=== PATIENT | female | born 1965 ===

== ENCOUNTER 2021-04-30 13:57 | Inpatient (IN) | payer OTHER ==
[~2021-04-30] VITALS: Ht 172.7 cm; Wt 100.5 kg
--- NOTE | 2021-04-30 14:07 | PHYS DOC ---
General Adult EDM: Chief Complaint: CHEST PAIN HPI: HPI: Patient is a 55 year old female who presents with report of chest pain, which began at home within the last few hours. She was sitting down when symptoms began. She reports pain beginning in her left chest, then radiating to the right chest and then radiating to her mid upper back. She denies dyspnea. She denies cough, fever, hemoptysis. She denies abdominal pain. She does report some mild nausea, no vomiting. She does report a mild headache, which she reports is usual for her. No thunderclap headache. She denies syncope. She denies leg pain or swelling. Denies recent surgery, travel history, or hospitalization. She reports that several years ago she had similar chest pain, which she reports was attributed to hypothyroidism and anxiety. She does admit that she has been quite stressed out recently, as she has some family members living with her, and her has been upset about this dynamic. She has no known history of any heart disease or NM. She reports that her mother has some unknown heart condition, which was diagnosed in her mother's 50s. Review of Systems: Review of Systems: Constitutional: Denies fever or chills. [] HENT: Denies nasal congestion or sore throat. [] Respiratory: Denies cough or hemoptysis. Denies shortness of breath. Cardiovascular: Reports chest pain. Denies peripheral edema. GI: Reports mild nausea, no vomiting. Denies abdominal pain. Musculoskeletal: Reports back pain, radiating from her chest. Denies joint pain or swelling. Integument: Denies rash. [] Neurologic: Denies headache, focal weakness or sensory changes. [] Psychiatric: Admits to anxiety and stress as related to current home situation.. [] Heart Score: C/O Chest Pain: Yes HEART Score for Chest Pain: HEART Score for Chest Pain Response (Comments) Value History Moderately Suspicious 1 ECG Nonspecific Repolarizatio 1 Age >45 - < 65 1 Risk Factors 1 or 2 Risk Factors 1 Troponin >1-<3x Normal Limit 1 Total 5 Risk Factors: Risk Factors: DM, Current or recent (<one month) smoker, HTN, HLP, family history of CAD, obesity. Risk Scores: Score 0 - 3: 2.5% MACE over next 6 weeks - Discharge Home Score 4 - 6: 20.3% MACE over next 6 weeks - Admit for Clinical Observation Score 7 - 10: 72.7% MACE over next 6 weeks - Early Invasive Strategies Physical Exam: PE: Constitutional: Well developed, well nourished, no acute distress, non-toxic appearance. She is anxious and appears uncomfortable. Right HENT: Normocephalic, atraumatic, mucous membranes are moist. Eyes: Sclera are clear, anicteric Neck: Trachea midline, no JVD Cardiovascular:Heart rate regular rhythm, no murmur, +2 radial and +2 posterior tibial pulses bilaterally. Lungs & Thorax: Bilateral breath sounds clear to auscultation, equal chest rise, no tachypnea, no retractions, no rales, rhonchi or wheezes. Palpation of the entire chest wall reproduces some pain. No palpable crepitus or step-offs. Abdomen: Abdomen is soft, nondistended, nontender to palpation. Skin: Warm, dry, no erythema, no rash. [] Back: No deformity. Diffuse paraspinal soft tissue thoracic tenderness to palpation. No midline tenderness or step-offs. Extremities: No tenderness, no cyanosis, no clubbing, ROM intact, no edema. No calf tenderness. Neurologic: Alert and oriented X 3, normal motor function, normal sensory function, no focal deficits noted. [] Psychologic: She is tearful and anxious, she is pleasant and cooperative. [] EKG: EKG: EKG is interpreted at 1410 Rhythm is sinus Rate is 75 bpm [place] is normal Marked artifact No STEMI EKG is interpreted at 1505 Rhythm is sinus Rate is 77 bpm [place] is normal No STEMI Artifact is improved Radiology/Procedures: Radiology/Procedures: IMAGING REPORT Signed PATIENT: REZA GRIMMCOUNT: [id number] : 1965 LOCATION: ER AGE: 55 SEX: F EXAM STATUS: REG ER ORD. PHYSICIAN: GIOVANI BARDALES DO REASON: chest pain PROCEDURE: PORTABLE CHEST 1V INDICATION: Reason: chest pain / Spl. Instructions: / History: COMPARISON: None. FINDINGS: Single view of chest obtained. Cardiomediastinal silhouette is prominent in size. Opacity is seen at the left greater than right lung base. IMPRESSION: * Opacity at left greater than right lung base which could be from atelectasis or infiltrate. A portion of this is likely also secondary to overlap of soft tissue structures. * Enlarged cardiomediastinal Silhouette which can be seen with cardiomegaly and/or pericardial effusion. Electronically signed by: Yu Rvias MD (04/30/2021 4:04 PM) [id number] DICTATED and SIGNED BY: YU RIVAS MD DATE: 04/30/21 [id number] IMAGING REPORT Signed PATIENT: REZA GRIMMCOUNT: [id number] : 1965 LOCATION: ER AGE: 55 SEX: F EXAM STATUS: REG ER ORD. PHYSICIAN: GIOVANI BARDALES DO REASON: chest pain, back pain, PROCEDURE: CT ANGIOGRAPHY CHEST Study: CT angiography of the chest with and without contrast Indication: Chest and back pain. Comparison: None. Technique: Helical CT imaging performed of the chest after the intravenous administration of 100 cc Omnipaque 350. Sagittal and coronal 3D MIP reconstructions were obtained. One or more of the following individualized dose reduction techniques were utilized for this examination: 1. Automated exposure control 2. Adjustment of the mA and/or kV according to patient size 3. Use of iterative reconstruction technique. Findings: Vasculature: No aortic aneurysm or dissection. The visualized aortic branch vessels at the upper abdomen and neck are patent. Main pulmonary artery caliber is within normal limits. No main or lobar pulmonary embolism. The peripheral pulmonary arteries are not fully evaluated on account of bolus timing. Non-vascular Findings: No pericardial effusion or mediastinal/hilar lymphadenopathy. Within normal limits esophagus. Mild emphysema. No significant pulmonary nodule that would warrant short-term follow-up. Mild bibasilar volume loss. No localized consolidation. Patent central airways. Unremarkable lower neck and axilla. Small nodular focus at the medial left breast, image 60 series 3 measuring 0.8 cm. Small hypoattenuating focus partially exophytic off the medial aspect of the left kidney upper pole which is too small to characterize. Splenic granulomas. Normal adrenal gland morphology. Several cystic density foci scattered throughout the liver which are statistically most likely benign. No acute or aggressive osseous abnormality. Impression: 1. No aortic aneurysm or dissection. The adequately assessed pulmonary arteries are patent. 2. Mild emphysema. No pneumothorax, pleural effusion or localized infiltrate. If the patient meets screening guidelines consider annual low dose CT of the chest. 3. Small nodular focus at the medial aspect the left breast measuring 0.8 cm. If not recently performed mammography is recommended. 4. Additional incidental/chronic findings outlined in the body of the report to include several hepatic cysts. Electronically signed by: FLASH ARRIAGA MD (04/30/2021 6:11 PM) [facility] DICTATED and SIGNED BY: FLASH ARRIAGA MD DATE: 04/30/21 [id number] 0 Course & Med Decision Making: Course & Med Decision Making Pertinent Labs and Imaging studies reviewed. (See chart for details) Patient is given p.o. aspirin, sublingual nitroglycerin. She is given IV Toradol and morphine. She was quite anxious initially, so she is given a dose of Ativan. She is resting very comfortably after all of this. She is reporting no further chest pain. Initial troponin is mildly elevated. CT angiogram took quite a while to be formally read by radiology, but ultimately turned is no evidence of dissection or other acute process. I have discussed all of the findings, differential diagnosis and plan of care with the patient. I explained my recommendation for admission and cardiology consultation. Second troponin returned markedly more elevated. I did order IV heparin drip. I consulted with Dr. Potts of cardiology, who agrees with medical management, and he will see the patient in the morning and will discuss cardiac catheterization. We'll continue to trend troponin exams as well. The patient is comfortable with the plan for admission. She is accepted for admission by Dr. Sotelo. Grayson Disclaimer: Grayson Disclaimer: This electronic medical record was generated, in whole or in part, using a voice recognition dictation system. Departure Departure Impression: Primary Impression: Chest pain Additional Impressions: Elevated troponin Cardiomegaly Acute coronary syndrome Disposition: ADMITTED INPATIENT Admitting Physician: NICOL Condition: GUARDED CATIA,GIOVANI Rosa DO Apr 30, 2021 14:07
[2021-04-30 14:28] LABS: BASO # 0.1 x10^3/uL (0.0-0.2); BASO % 1 % (0-3); EOS % 0 % (0-3); HEMATOCRIT 40.9 % (36.0-47.0); HEMOGLOBIN 13.5 g/dL (12.0-15.5); LYMPH # 1.7 x10^3/uL (1.0-4.8); LYMPH % 23 % (24-48); MEAN CORPUSCULAR HEMOGLOBIN 29 pg (25-35); MEAN CORPUSCULAR HGB CONC 33 g/dL (31-37); MEAN CORPUSCULAR VOLUME 87 fL (79-100); MONO # 0.5 x10^3/uL (0.0-1.1); MONO % 7 % (0-9); NEUT % 69 % (31-73); PLATELET COUNT 239 x10^3/uL (140-400); RED BLOOD COUNT 4.68 x10^6/uL (3.50-5.40); RED CELL DISTRIBUTION WIDTH 15.1 % (11.5-14.5); WHITE BLOOD COUNT 7.2 x10^3/uL (4.0-11.0)
[2021-04-30] MEDS ORDERED: KETOROLAC 15 MG/ML VIAL. IVP ONE (14:30)
[2021-04-30] MEDS ORDERED: IV NORMAL SALINE 1000ML BAG 1,000 ML IV ONE ×2 (14:30→18:15)
--- NOTE | 2021-04-30 14:37 | EKG ---
[facility] [address] [place] [address] Test Date: 2021-04-30 Test Time: 14:08:18 Pat Name: REZA GRIMM Department: Room: Gender: F Otc Clerk: : 1965 Requested By: GIOVANI BARDALES Order Number: [id number] Reading MD: José Miguel Davis MD Measurements Intervals [place] Rate: 0 P: MD: QRS: 0 QRSD: 0 T: 0 QT: 0 QTc: 0 Interpretive Statements SINUS RHYTHM BASELINE ARTIFACT NON-SPECIFIC ST/T CHANGES Electronically Signed On 05-02-2021 13:59:05 [employer]USSI[employer]ANGU[employer] PROFESSOR by José Miguel Davis MD
[2021-04-30 14:39] LABS: CALCIUM 8.3 mg/dL (8.5-10.1); CREATININE 0.7 mg/dL (0.6-1.0); GFR 87.2; POTASSIUM 3.8 mmol/L (3.5-5.1)
[2021-04-30 14:46] LABS: ALBUMIN 3.5 g/dL (3.4-5.0); ALBUMIN/GLOBULIN RATIO 0.9 (1.0-1.7); TOTAL BILIRUBIN 0.3 mg/dL (0.2-1.0); TOTAL PROTEIN 7.2 g/dL (6.4-8.2)
[2021-04-30] MEDS ORDERED: ASPIRIN CHEWABLE 81 MG TABLET. PO ONE (15:15)
[2021-04-30 15:18] LABS: PREG TEST PT QUAL NEGATIVE (NEG)
--- NOTE | 2021-04-30 15:19 | EKG ---
[facility] [address] [place] [address] Test Date: 2021-04-30 Test Time: 15:03:09 Pat Name: REZA GRIMM Department: Room: Gender: F Patient Monitor: : 1965 Requested By: GIOVANI BARDALES Order Number: [id number] Reading MD: José Miguel Davis MD Measurements Intervals [place] Rate: 77 P: 48 PA: 184 QRS: 0 QRSD: 94 T: 8 QT: 400 QTc: 455 Interpretive Statements SINUS RHYTHM Electronically Signed On 05-02-2021 13:58:18 SECOND SHIFT SUPERVISOR by José Miguel Davis MD
[2021-04-30] MEDS ORDERED: IOHEXOL 350 MG/ML 100 ML VIAL. IV ONE (15:30)
[2021-04-30] MEDS: NITROGLYCERIN SUBLINGUAL 0.4 MG BOTTLE OF 25. SL PRN ×2 (15:35→15:40)
[2021-04-30 15:49] LABS: BILIRUBIN,URINE NEGATIVE (NEG); CLARITY,URINE CLEAR; COLOR,URINE YELLOW; NITRITE,URINE NEGATIVE (NEG); PROTEIN,URINE NEGATIVE (NEG-TRACE); UROBILINOGEN,URINE 0.2 mg/dL (0.2 mg/dL)
[2021-04-30 15:53] LABS: BACTERIA,URINE 0 /HPF (0-FEW); RBC,URINE TNTC /HPF (0-2)
--- NOTE | 2021-04-30 16:07 | RAD ---
INDICATION: Reason: chest pain / Spl. Instructions: / History: COMPARISON: None. FINDINGS: Single view of chest obtained. Cardiomediastinal silhouette is prominent in size. Opacity is seen at the left greater than right lung base. IMPRESSION: * Opacity at left greater than right lung base which could be from atelectasis or infiltrate. A port ion of this is likely also secondary to overlap of soft tissue structures. * Enlarged cardiomediastinal Silhouette which can be seen with cardiomegaly and/or pericardial effus ion. Electronically signed by: Adrian Paris MD (04/30/2021 4:04 PM) [id number]
--- NOTE | 2021-04-30 18:13 | RAD ---
Study: CT angiography of the chest with and without contrast Indication: Chest and back pain. Comparison: None. Technique: Helical CT imaging performed of the chest after the intravenous administration of 100 cc O mnipaque 350. Sagittal and coronal 3D MIP reconstructions were obtained. One or more of the following individualized dose reduction techniques were utilized for this examinat ion: 1. Automated exposure control 2. Adjustment of the mA and/or kV according to patient size 3. Use of iterative reconstruction technique. Findings: Vasculature: No aortic aneurysm or dissection. The visualized aortic branch vessels at the upper abdomen and neck are patent. Main pulmonary artery caliber is within normal limits. No main or lobar pulmonary embolis m. The peripheral pulmonary arteries are not fully evaluated on account of bolus timing. Non-vascular Findings: No pericardial effusion or mediastinal/hilar lymphadenopathy. Within normal limits esophagus. Mild emphysema. No significant pulmonary nodule that would warrant short-term follow-up. Mild bibasil ar volume loss. No localized consolidation. Patent central airways. Unremarkable lower neck and axilla. Small nodular focus at the medial left breast, image 60 series 3 measuring 0.8 cm. Small hypoattenuating focus partially exophytic off the medial aspect of the left kidney upper pole w hich is too small to characterize. Splenic granulomas. Normal adrenal gland morphology. Several cysti c density foci scattered throughout the liver which are statistically most likely benign. No acute or aggressive osseous abnormality. Impression: 1. No aortic aneurysm or dissection. The adequately assessed pulmonary arteries are patent. 2. Mild emphysema. No pneumothorax, pleural effusion or localized infiltrate. If the patient meets s creening guidelines consider annual low dose CT of the chest. 3. Small nodular focus at the medial aspect the left breast measuring 0.8 cm. If not recently perfor med mammography is recommended. 4. Additional incidental/chronic findings outlined in the body of the report to include several hepa tic cysts. Electronically signed by: FLASH ARRIAGA MD (04/30/2021 6:11 PM) [facility]
[2021-04-30] MEDS ORDERED: MORPHINE SULFATE 4 MG/ML INJ. IVP PRN (18:15)
[2021-04-30] MEDS ORDERED: ONDANSETRON PF 4 MG/2 ML VIAL. IVP PRN (18:15)
[2021-04-30] MEDS ORDERED: MORPHINE SULFATE 4 MG/ML INJ. IVP ONE (18:45)
[2021-04-30] MEDS ORDERED: HEPARIN for IV BOLUS 10,000 UNIT/10 ML VIAL. IV PRN (19:00)
[2021-04-30 20:07] VITALS: BP 153/83
[2021-04-30] MEDS: HEPARIN 25,000UTS/250ML PREMIX 250 ML IV PRN (20:21)
[2021-04-30] MEDS ORDERED: METOPROLOL TART IMMED RELEASE 25 MG TABLET. PO ONE (21:15)
[2021-04-30] MEDS ORDERED: LEVO125T5 PO (21:18)
[2021-04-30] MEDS ORDERED: NORG1TAB6 PO (21:18)
--- NOTE | 2021-04-30 21:40 | PDOC1 ---
History and Physical Date of Admission Date of Admission DATE: 04/30/21 TIME: 21:34 Identification/Chief Complaint Chief Complaint chest pain Source Source: Chart review, Patient History of Present Illness History of Present Illness Ms. Polo, is a 55 year old female admit with chest pain. mid sternal pain in AM, then to right chest and back to back and back of neck to base of skull. Pain is now imrpvoed since being seen in the ER. CTA done in ER to r/o dissection, intial trop 75, now 6k no prior hx, stable on meds, she follows with her PCP well, she has had trouble trying to exercise for years "I felt like my heart was going to beat out of my chest" when trying to ride a bicycle. She reports that her grandmother and mother has some unknown heart condition, her PCP is Dr. Mathur Past Medical History Past Medical History graves, migrane, hypothyroid, overweight Past Surgical History Past Surgical History: No pertinent history Family History Family History: Coronary Artery Disease, Heart Disease, Other (COPD) Social History Smoke: Quit (4 years ago) ALCOHOL: none Drugs: None Current Problem List Problem List Problems Medical Problems: (1) Acute coronary syndrome Status: Acute (2) Cardiomegaly Status: Acute (3) Chest pain Status: Acute (4) Elevated troponin Status: Acute Current Medications Current Medications Current Medications Ketorolac Tromethamine (Toradol 15mg Vial) 15 mg 1X ONCE IVP Last administered on 04/30/21at 14:30; Start 04/30/21 at 14:30; Stop 04/30/21 at 14:31; Status DC Lorazepam (Ativan Inj) 1 mg 1X ONCE IVP Last administered on 04/30/21at 14:30; Start 04/30/21 at 14:30; Stop 04/30/21 at 14:31; Status DC Sodium Chloride 1,000 ml @ 1,000 mls/hr 1X ONCE IV Last administered on 04/30/21at 14:30; Start 04/30/21 at 14:30; Stop 04/30/21 at 15:29; Status DC Aspirin (Aspirin Chewable) 324 mg 1X ONCE PO Last administered on 04/30/21at 15:15; Start 04/30/21 at 15:15; Stop 04/30/21 at 15:16; Status DC Nitroglycerin (Nitrostat) 0.4 mg PRN Q5MIN PRN SL CHEST PAIN Last administered on 04/30/21at 15:40; Start 04/30/21 at 15:30 Iohexol (Omnipaque 350 Mg/ml) 100 ml 1X ONCE IV Last administered on 04/30/21at 15:30; Start 04/30/21 at 15:30; Stop 04/30/21 at 15:31; Status DC Ondansetron HCl (Zofran) 4 mg PRN Q8HRS PRN IVP NAUSEA/VOMITING; Start 04/30/21 at 18:15; Stop 05/01/21 at 18:14 Morphine Sulfate (Morphine Sulfate) 4 mg PRN Q4HRS PRN IVP chest pain; Start 04/30/21 at 18:15 Sodium Chloride 1,000 ml @ 75 mls/hr 1X ONCE IV Last administered on 04/30/21at 18:15; Start 04/30/21 at 18:15; Stop 05/01/21 at 07:34 Morphine Sulfate (Morphine Sulfate) 4 mg 1X ONCE IVP Last administered on 04/30/21at 18:24; Start 04/30/21 at 18:45; Stop 04/30/21 at 18:46; Status DC Heparin Sodium/ Dextrose 250 ml @ 12 mls/hr CONT PRN IV PER PROTOCOL Last administered on 04/30/21at 20:21; Start 04/30/21 at 19:00 Heparin Sodium (Porcine) (Heparin Sodium) 2,500 unit PRN Q6HRS PRN IV FOR UFH LEVEL LESS THAN 0.2; Start 04/30/21 at 19:00 Metoprolol Tartrate (Lopressor) 25 mg BID PO ; Start 05/01/21 at 09:00 Metoprolol Tartrate (Lopressor) 25 mg 1X ONCE PO ; Start 04/30/21 at 21:15; Stop 04/30/21 at 21:18; Status DC Active Scripts Active Reported Sprintec (Norgestimate-Ethinyl Estradiol) 1 Each Tablet 1 Tab PO DAILY Levothyroxine Sodium 125 Mcg Tablet 250 Mcg PO DAILYAC Allergies Allergies: Coded Allergies: No Known Drug Allergies (Unverified , 04/30/21) ROS Review of System exercise intolerance, can do 2 flights stairs only General: No: Chills, Night Sweats, Fatigue, Malaise, Appetite, Other PSYCHOLOGICAL ROS: No: Anxiety, Behavioral Disorder, Concentration difficultie, Decreased libido, Depression, Disorientation, Hallucinations, Hostility, Irritablity, Memory difficulties, Mood Swings, Obsessive thoughts, Physical abuse, Sexual abuse, Sleep disturbances, Suicidal ideation, Other Eyes: No Blurry vision, No Decreased vision, No Double vision, No Dry eyes, No Excessive tearing, No Eye Pain, No Itchy Eyes, No Loss of vision, No Photophobia, No Scotomata, No Uses contacts, No Uses glasses, No Other HEENT: No: Heacaches, Visual Changes, Hearing change, Nasal congestion, Nasal discharge, Oral lesions, Sinus pain, Sore Throat, Epistaxis, Sneezing, Snoring, Tinnitus, Vertigo, Vocal changes, Other Respiratory: YES: SOB with excertion; No: Cough, Hemoptysis, Orthopnea, Pleuritic Pain, Shortness of breath, Sputum Changes, Stridor, Tachypnea, Wheezing, Other Cardiovascular: yes Chest Pain; No Palpitations, No Orthopnea, No Paroxysmal Noc. Dyspnea, No Edema, No Lt Headedness, No Other Gastrointestinal: No Nausea, No Vomiting, No Abdominal Pain, No Diarrhea, No Constipation, No Melena, No Hematochezia, No Other Genitourinary: No Dysuria, No Frequency, No Incontinence, No Hematuria, No Retention, No Discharge, No Urgency, No Pain, No Flank Pain, No Other, No , No , No , No , No , No , No Musculoskeletal: Yes Joint Stiffness; No Gait Disturbance, No Joint Pain, No Joint Swelling, No Muscle Pain, No Muscular Weakness, No Pain In:, No Swelling In:, No Other Neurological: Yes Headaches; No Behavorial Changes, No Bowel/Bladder ControlChng, No Confusion, No Dizziness, No Gait Disturbance, No Impaired Coord/balance, No Memory Loss, No Numbness/Tingling, No Seizures, No Speech Problems, No Tremors, No Visual Changes, No Weakness, No Other Skin: No Dry Skin, No Eczema, No Hair Changes, No Lumps, No Mole Changes, No Mottling, No Nail Changes, No Pruritus, No Rash, No Skin Lesion Changes, No Other, No Acne Physical Exam General: Alert, Oriented X3, Cooperative, No acute distress HEENT: Atraumatic, PERRLA, EOMI Lungs: Clear to auscultation, Normal air movement Heart: S1S2, RRR, no gallops, no murmurs Abdomen: Normal bowel sounds, Soft Rectal Exam: not examined Extremities: No clubbing, No edema, Normal pulses Skin: No breakdown, No significant lesion Neuro: Normal speech, Sensation intact, Cranial nerves 3-12 NL Psych/Mental Status: Mental status NL, Mood NL Vitals Vitals Vital Signs Date Time Temp Pulse Resp B/P (MAP) Pulse Ox O2 Delivery O2 Flow Rate FiO2 04/30/21 20:07 97.6 79 18 153/83 (106) 98 Room Air 97.6 Labs Labs Laboratory Tests Test 04/30/21 14:10 04/30/21 15:36 04/30/21 17:15 White Blood Count 7.2 x10^3/uL (4.0-11.0) Red Blood Count 4.68 x10^6/uL (3.50-5.40) Hemoglobin 13.5 g/dL (12.0-15.5) Hematocrit 40.9 % (36.0-47.0) Mean Corpuscular Volume 87 fL (79-100) Mean Corpuscular Hemoglobin 29 pg (25-35) Mean Corpuscular Hemoglobin Concent 33 g/dL (31-37) Red Cell Distribution Width 15.1 % (11.5-14.5) Platelet Count 239 x10^3/uL (140-400) Neutrophils (%) (Auto) 69 % (31-73) Lymphocytes (%) (Auto) 23 % (24-48) Monocytes (%) (Auto) 7 % (0-9) Eosinophils (%) (Auto) 0 % (0-3) Basophils (%) (Auto) 1 % (0-3) Neutrophils # (Auto) 5.0 x10^3/uL (1.8-7.7) Lymphocytes # (Auto) 1.7 x10^3/uL (1.0-4.8) Monocytes # (Auto) 0.5 x10^3/uL (0.0-1.1) Eosinophils # (Auto) 0.0 x10^3/uL (0.0-0.7) Basophils # (Auto) 0.1 x10^3/uL (0.0-0.2) D-Dimer (Jesi) 0.31 ug/mlFEU (0.00-0.50) Sodium Level 140 mmol/L (136-145) Potassium Level 3.8 mmol/L (3.5-5.1) Chloride Level 107 mmol/L (98-107) Carbon Dioxide Level 21 mmol/L (21-32) Anion Gap 12 (6-14) Blood Urea Nitrogen 10 mg/dL (7-20) Creatinine 0.7 mg/dL (0.6-1.0) Estimated GFR (Cockcroft-Gault) 87.2 BUN/Creatinine Ratio 14 (6-20) Glucose Level 111 mg/dL (70-99) Calcium Level 8.3 mg/dL (8.5-10.1) Magnesium Level 2.0 mg/dL (1.8-2.4) Total Bilirubin 0.3 mg/dL (0.2-1.0) Aspartate Amino Transf (AST/SGOT) 12 U/L (15-37) Alanine Aminotransferase (ALT/SGPT) 19 U/L (14-59) Alkaline Phosphatase 71 U/L (46-116) Creatine Kinase 81 U/L (26-192) Troponin I High Sensitivity 74 ng/L (4-50) 5436 ng/L (4-50) JH-Aol-S-Type Natriuretic Peptide 253 pg/mL (0-124) Total Protein 7.2 g/dL (6.4-8.2) Albumin 3.5 g/dL (3.4-5.0) Albumin/Globulin Ratio 0.9 (1.0-1.7) Lipase 48 U/L (73-393) Serum Test, Qualitative Negative (NEG) Urine Collection Type Unknown Urine Color Yellow Urine Clarity Clear Urine pH 6.0 (<5.0-8.0) Urine Specific [place] 1.010 (1.000-1.030) Urine Protein Negative mg/dL (NEG-TRACE) Urine Glucose (UA) Negative mg/dL (NEG) Urine Ketones (Stick) 40 mg/dL (NEG) Urine Blood Large (NEG) Urine Nitrite Negative (NEG) Urine Bilirubin Negative (NEG) Urine Urobilinogen Dipstick 0.2 mg/dL (0.2 mg/dL) Urine Leukocyte Esterase Small (NEG) Urine RBC Tntc /HPF (0-2) Urine WBC 1-4 /HPF (0-4) Urine Squamous Epithelial Cells Few /LPF Urine Bacteria 0 /HPF (0-FEW) Urine Mucus Slight /LPF Laboratory Tests Test 04/30/21 14:10 04/30/21 15:36 04/30/21 17:15 White Blood Count 7.2 x10^3/uL (4.0-11.0) Red Blood Count 4.68 x10^6/uL (3.50-5.40) Hemoglobin 13.5 g/dL (12.0-15.5) Hematocrit 40.9 % (36.0-47.0) Mean Corpuscular Volume 87 fL (79-100) Mean Corpuscular Hemoglobin 29 pg (25-35) Mean Corpuscular Hemoglobin Concent 33 g/dL (31-37) Red Cell Distribution Width 15.1 % (11.5-14.5) Platelet Count 239 x10^3/uL (140-400) Neutrophils (%) (Auto) 69 % (31-73) Lymphocytes (%) (Auto) 23 % (24-48) Monocytes (%) (Auto) 7 % (0-9) Eosinophils (%) (Auto) 0 % (0-3) Basophils (%) (Auto) 1 % (0-3) Neutrophils # (Auto) 5.0 x10^3/uL (1.8-7.7) Lymphocytes # (Auto) 1.7 x10^3/uL (1.0-4.8) Monocytes # (Auto) 0.5 x10^3/uL (0.0-1.1) Eosinophils # (Auto) 0.0 x10^3/uL (0.0-0.7) Basophils # (Auto) 0.1 x10^3/uL (0.0-0.2) D-Dimer (Jesi) 0.31 ug/mlFEU (0.00-0.50) Sodium Level 140 mmol/L (136-145) Potassium Level 3.8 mmol/L (3.5-5.1) Chloride Level 107 mmol/L (98-107) Carbon Dioxide Level 21 mmol/L (21-32) Anion Gap 12 (6-14) Blood Urea Nitrogen 10 mg/dL (7-20) Creatinine 0.7 mg/dL (0.6-1.0) Estimated GFR (Cockcroft-Gault) 87.2 BUN/Creatinine Ratio 14 (6-20) Glucose Level 111 mg/dL (70-99) Calcium Level 8.3 mg/dL (8.5-10.1) Magnesium Level 2.0 mg/dL (1.8-2.4) Total Bilirubin 0.3 mg/dL (0.2-1.0) Aspartate Amino Transf (AST/SGOT) 12 U/L (15-37) Alanine Aminotransferase (ALT/SGPT) 19 U/L (14-59) Alkaline Phosphatase 71 U/L (46-116) Creatine Kinase 81 U/L (26-192) Troponin I High Sensitivity 74 ng/L (4-50) 5436 ng/L (4-50) ZI-Asc-D-Type Natriuretic Peptide 253 pg/mL (0-124) Total Protein 7.2 g/dL (6.4-8.2) Albumin 3.5 g/dL (3.4-5.0) Albumin/Globulin Ratio 0.9 (1.0-1.7) Lipase 48 U/L (73-393) Serum Test, Qualitative Negative (NEG) Urine Collection Type Unknown Urine Color Yellow Urine Clarity Clear Urine pH 6.0 (<5.0-8.0) Urine Specific [place] 1.010 (1.000-1.030) Urine Protein Negative mg/dL (NEG-TRACE) Urine Glucose (UA) Negative mg/dL (NEG) Urine Ketones (Stick) 40 mg/dL (NEG) Urine Blood Large (NEG) Urine Nitrite Negative (NEG) Urine Bilirubin Negative (NEG) Urine Urobilinogen Dipstick 0.2 mg/dL (0.2 mg/dL) Urine Leukocyte Esterase Small (NEG) Urine RBC Tntc /HPF (0-2) Urine WBC 1-4 /HPF (0-4) Urine Squamous Epithelial Cells Few /LPF Urine Bacteria 0 /HPF (0-FEW) Urine Mucus Slight /LPF VTE Prophylaxis Ordered VTE Prophylaxis Devices: No VTE Pharmacological Prophylaxi: Yes Assessment/Plan Assessment/Plan NSTEMI admit, heparin gtt, statin, b-dominguez, aspirin, CV consult obese, BMI 33 htn graves disease, hypothyriod recent vaginal bleeding without anemia, on control, will need f/u migrane headache, better on hormone replacement Justifications for Admission Other Justification ROMEO WEBSTER MD Apr 30, 2021 21:40
[2021-04-30] MEDS: ATORVASTATIN CALCIUM 40 MG TABLET. PO SCH (22:47)
[2021-04-30 22:50] VITALS: BP 117/64
[2021-05-01 02:42] VITALS: BP 103/54
[2021-05-01 02:48] LABS: HEMATOCRIT 35.9 % (36.0-47.0); HEMOGLOBIN 11.8 g/dL (12.0-15.5); RED BLOOD COUNT 4.11 x10^6/uL (3.50-5.40); RED CELL DISTRIBUTION WIDTH 15.3 % (11.5-14.5); WHITE BLOOD COUNT 6.1 x10^3/uL (4.0-11.0)
[2021-05-01 03:04] LABS: CALCIUM 7.6 mg/dL (8.5-10.1); CREATININE 0.6 mg/dL (0.6-1.0); GFR 104.2; POTASSIUM 3.9 mmol/L (3.5-5.1)
--- NOTE | 2021-05-01 06:38 | EKG ---
[facility] [address] [place] [address] Test Date: 2021-05-01 Test Time: 02:20:18 Pat Name: REZA GRIMM Department: Room: 2 Gender: F Med Care Manager: [facility] : 1965 Requested By: ROMEO WEBSTER Order Number: [id number] Reading MD: José Miguel Davis MD Measurements Intervals Nunez Rate: 54 P: 51 WV: 172 QRS: 48 QRSD: 92 T: 20 QT: 456 QTc: 434 Interpretive Statements SINUS RHYTHM Electronically Signed On 05-03-2021 11:43:07 [employer] by José Miguel Davsi MD
[2021-05-01 07:00] VITALS: BP 135/68
[2021-05-01] MEDS: ACETAMINOPHEN 325 MG TABLET. PO PRN ×2 (07:30→18:40)
[2021-05-01] MEDS: METOPROLOL TART IMMED RELEASE 25 MG TABLET. PO SCH ×2 (09:12→21:15)
[2021-05-01 11:00] VITALS: BP 135/77
[2021-05-01] MEDS ORDERED: SODIUM BICARBONATE VIAL 50 MEQ in IV 1/2 NORMAL SALINE 1,000 ML IV ONE (11:00)
--- NOTE | 2021-05-01 12:15 | PDOC ---
[employer] PROGRESS NOTE Date of Service DOS: DATE: 05/01/21 TIME: 12:13 Chief Complaint Chief Complaint NSTEMI admit, heparin gtt, statin, b-dominguez, aspirin, CV consult obese, BMI 33 htn graves disease, hypothyriod recent vaginal bleeding without anemia, on control, will need f/u migrane headache, better on hormone replacement History of Present Illness History of Present Illness contrast given for CTA yesterday, will give IV bicarb fluid today to protect kidney needs cardiac cath, plan in AM, good renal fxn, plan to keep it that way discussed with Dr. Gamboa Vitals/I&O Vitals/I&O: Vital Signs Date Time Temp Pulse Resp B/P (MAP) Pulse Ox O2 Delivery O2 Flow Rate FiO2 05/01/21 09:54 Room Air 05/01/21 09:12 64 135/68 05/01/21 07:00 97.2 18 97 97.2 I & O 04/30/21 04/30/21 05/01/21 15:00 23:00 07:00 Intake Total 400 ml 200 ml Output Total 1 ml Balance 400 ml 199 ml Physical Exam General: Alert, Oriented X3, Cooperative, No acute distress Heart: Regular rate, No murmurs Abdomen: Normal bowel sounds, Soft Extremities: No clubbing, No edema, Normal pulses Skin: No breakdown, No significant lesion Labs Labs: Laboratory Tests Test 04/30/21 14:10 04/30/21 15:36 04/30/21 17:15 05/01/21 02:32 White Blood Count 7.2 x10^3/uL (4.0-11.0) 6.1 x10^3/uL (4.0-11.0) Red Blood Count 4.68 x10^6/uL (3.50-5.40) 4.11 x10^6/uL (3.50-5.40) Hemoglobin 13.5 g/dL (12.0-15.5) 11.8 g/dL (12.0-15.5) Hematocrit 40.9 % (36.0-47.0) 35.9 % (36.0-47.0) Mean Corpuscular Volume 87 fL (79-100) 87 fL (79-100) Mean Corpuscular Hemoglobin 29 pg (25-35) 29 pg (25-35) Mean Corpuscular Hemoglobin Concent 33 g/dL (31-37) 33 g/dL (31-37) Red Cell Distribution Width 15.1 % (11.5-14.5) 15.3 % (11.5-14.5) Platelet Count 239 x10^3/uL (140-400) 224 x10^3/uL (140-400) Neutrophils (%) (Auto) 69 % (31-73) Lymphocytes (%) (Auto) 23 % (24-48) Monocytes (%) (Auto) 7 % (0-9) Eosinophils (%) (Auto) 0 % (0-3) Basophils (%) (Auto) 1 % (0-3) Neutrophils # (Auto) 5.0 x10^3/uL (1.8-7.7) Lymphocytes # (Auto) 1.7 x10^3/uL (1.0-4.8) Monocytes # (Auto) 0.5 x10^3/uL (0.0-1.1) Eosinophils # (Auto) 0.0 x10^3/uL (0.0-0.7) Basophils # (Auto) 0.1 x10^3/uL (0.0-0.2) D-Dimer (Jesi) 0.31 ug/mlFEU (0.00-0.50) Sodium Level 140 mmol/L (136-145) 138 mmol/L (136-145) Potassium Level 3.8 mmol/L (3.5-5.1) 3.9 mmol/L (3.5-5.1) Chloride Level 107 mmol/L (98-107) 109 mmol/L (98-107) Carbon Dioxide Level 21 mmol/L (21-32) 23 mmol/L (21-32) Anion Gap 12 (6-14) 6 (6-14) Blood Urea Nitrogen 10 mg/dL (7-20) 10 mg/dL (7-20) Creatinine 0.7 mg/dL (0.6-1.0) 0.6 mg/dL (0.6-1.0) Estimated GFR (Cockcroft-Gault) 87.2 104.2 BUN/Creatinine Ratio 14 (6-20) Glucose Level 111 mg/dL (70-99) 120 mg/dL (70-99) Calcium Level 8.3 mg/dL (8.5-10.1) 7.6 mg/dL (8.5-10.1) Magnesium Level 2.0 mg/dL (1.8-2.4) Total Bilirubin 0.3 mg/dL (0.2-1.0) Aspartate Amino Transf (AST/SGOT) 12 U/L (15-37) Alanine Aminotransferase (ALT/SGPT) 19 U/L (14-59) Alkaline Phosphatase 71 U/L (46-116) Creatine Kinase 81 U/L (26-192) Troponin I High Sensitivity 74 ng/L (4-50) 5436 ng/L (4-50) 2769 ng/L (4-50) RP-[place]-V-Type Natriuretic Peptide 253 pg/mL (0-124) Total Protein 7.2 g/dL (6.4-8.2) Albumin 3.5 g/dL (3.4-5.0) Albumin/Globulin Ratio 0.9 (1.0-1.7) Lipase 48 U/L (73-393) Serum Test, Qualitative Negative (NEG) Urine Collection Type Unknown Urine Color Yellow Urine Clarity Clear Urine pH 6.0 (<5.0-8.0) Urine Specific [place] 1.010 (1.000-1.030) Urine Protein Negative mg/dL (NEG-TRACE) Urine Glucose (UA) Negative mg/dL (NEG) Urine Ketones (Stick) 40 mg/dL (NEG) Urine Blood Large (NEG) Urine Nitrite Negative (NEG) Urine Bilirubin Negative (NEG) Urine Urobilinogen Dipstick 0.2 mg/dL (0.2 mg/dL) Urine Leukocyte Esterase Small (NEG) Urine RBC Tntc /HPF (0-2) Urine WBC 1-4 /HPF (0-4) Urine Squamous Epithelial Cells Few /LPF Urine Bacteria 0 /HPF (0-FEW) Urine Mucus Slight /LPF Heparin Anti-Xa Act, Unfractionated < 0.10 IU/mL (0.30-0.70) Triglycerides Level 114 mg/dL (0-150) Cholesterol Level 157 mg/dL (0-200) LDL Cholesterol, Calculated 82 mg/dL (0-100) VLDL Cholesterol, Calculated 23 mg/dL (0-40) Non-HDL Cholesterol Calculated 105 mg/dL (0-129) HDL Cholesterol 52 mg/dL (40-60) Cholesterol/HDL Ratio 3.0 Test 05/01/21 08:35 Heparin Anti-Xa Act, Unfractionated 0.35 IU/mL (0.30-0.70) Review of Systems Review of Systems: no n.v.d no chest pain Assessment and Plan Assessmemt and Plan Problems Medical Problems: (1) Acute coronary syndrome Status: Acute (2) Cardiomegaly Status: Acute (3) Chest pain Status: Acute (4) Elevated troponin Status: Acute Comment Review of Relevant I have reviewed the following items daniel (where applicable) has been applied. Medications: Current Medications Medications (Trade) Dose Ordered Sig/Alberto Route PRN Reason Start Time Stop Time Status Last Admin Dose Admin Ketorolac Tromethamine (Toradol 15mg Vial) 15 mg 1X ONCE IVP 04/30/21 14:30 04/30/21 14:31 DC 04/30/21 14:30 Lorazepam (Ativan Inj) 1 mg 1X ONCE IVP 04/30/21 14:30 04/30/21 14:31 DC 04/30/21 14:30 Sodium Chloride 1,000 ml @ 1,000 mls/hr 1X ONCE IV 04/30/21 14:30 04/30/21 15:29 DC 04/30/21 14:30 Aspirin (Aspirin Chewable) 324 mg 1X ONCE PO 04/30/21 15:15 04/30/21 15:16 DC 04/30/21 15:15 Nitroglycerin (Nitrostat) 0.4 mg PRN Q5MIN PRN SL CHEST PAIN 04/30/21 15:30 04/30/21 15:40 Iohexol (Omnipaque 350 Mg/ml) 100 ml 1X ONCE IV 04/30/21 15:30 04/30/21 15:31 DC 04/30/21 15:30 Morphine Sulfate (Morphine Sulfate) 4 mg PRN Q4HRS PRN IVP chest pain 04/30/21 18:15 05/01/21 09:24 Sodium Chloride 1,000 ml @ 75 mls/hr 1X ONCE IV 04/30/21 18:15 05/01/21 07:34 DC 04/30/21 18:15 Morphine Sulfate (Morphine Sulfate) 4 mg 1X ONCE IVP 04/30/21 18:45 04/30/21 18:46 DC 04/30/21 18:24 Heparin Sodium/ Dextrose 250 ml @ 12 mls/hr CONT PRN IV PER PROTOCOL 04/30/21 19:00 04/30/21 20:21 Heparin Sodium (Porcine) (Heparin Sodium) 2,500 unit PRN Q6HRS PRN IV FOR UFH LEVEL LESS THAN 0.2 04/30/21 19:00 05/01/21 03:20 Metoprolol Tartrate (Lopressor) 25 mg BID PO 05/01/21 09:00 05/01/21 09:12 Metoprolol Tartrate (Lopressor) 25 mg 1X ONCE PO 04/30/21 21:15 04/30/21 21:18 DC 04/30/21 22:47 Atorvastatin Calcium (Lipitor) 40 mg QHS PO 04/30/21 22:00 04/30/21 22:47 Acetaminophen (Tylenol) 650 mg PRN Q6HRS PRN PO MILD PAIN / TEMP > 100.3'F 05/01/21 06:45 05/01/21 07:30 Sodium Bicarbonate 50 meq/Sodium Chloride 1,050 ml @ 100 mls/hr 1X ONCE IV 05/01/21 11:00 05/01/21 21:29 05/01/21 11:50 Justifications for Admission Other Justification ROMEO WEBSTER MD May 01, 2021 12:15
[2021-05-01] MEDS: LEVOTHYROXINE 125 MCG TABLET PO SCH (13:29)
[2021-05-01] MEDS: HEPARIN 25,000UTS/250ML PREMIX 250 ML IV PRN (13:35)
[2021-05-01] MEDS ORDERED: predniSONE 10 MG TABLET PO ONE ×2 (13:45→18:00)
--- NOTE | 2021-05-01 13:52 | PDOC2 ---
CONSULT Date of Consult Date of Consult DATE: 05/01/21 TIME: 13:44 Reason for Consult Reason for Consult: Chest pain, elevated troponin. Referring Physician Referring Physician: Dr. Sotelo Identification/Chief Complaint Chief Complaint Chest pain Source Source: Chart review, Patient History of Present Illness Reason for Visit: The patient is a 55-year-old female who was admitted through the emergency room for 2 to 3 hours of chest pain associated with mild nausea. Patient denied shortness of breath, dizziness or lightheadedness. EKG showed a sinus rhythm with mild nonspecific ST-T wave changes. She was placed on IV heparin. Initial troponin was normal at 74 with subsequent elevation to 5436 and then declined this morning to 2769. Patient's chest x-ray showed a mildly prominent cardiac silhouette. CT scan of the chest showed no evidence of dissection or aortic aneurysm. The patient did have mild emphysema. The patient's chest pain has resolved. She reports a headache this morning. Past Medical History Cardiovascular: HTN CENTRAL NERVOUS SYSTEM: Migraine Endocrine: Hypothyroidism Past Surgical History Past Surgical History: No pertinent history Family History Family History: Coronary Artery Disease, Heart Disease, Other (COPD) Social History Quit (4 years ago) ALCOHOL: none Drugs: None Current Problem List Problem List Problems Medical Problems: (1) Acute coronary syndrome Status: Acute (2) Cardiomegaly Status: Acute (3) Chest pain Status: Acute (4) Elevated troponin Status: Acute Current Medications Current Medications Current Medications Ketorolac Tromethamine (Toradol 15mg Vial) 15 mg 1X ONCE IVP Last administered on 04/30/21at 14:30; Start 04/30/21 at 14:30; Stop 04/30/21 at 14:31; Status DC Lorazepam (Ativan Inj) 1 mg 1X ONCE IVP Last administered on 04/30/21at 14:30; Start 04/30/21 at 14:30; Stop 04/30/21 at 14:31; Status DC Sodium Chloride 1,000 ml @ 1,000 mls/hr 1X ONCE IV Last administered on 04/30/21at 14:30; Start 04/30/21 at 14:30; Stop 04/30/21 at 15:29; Status DC Aspirin (Aspirin Chewable) 324 mg 1X ONCE PO Last administered on 04/30/21at 15:15; Start 04/30/21 at 15:15; Stop 04/30/21 at 15:16; Status DC Nitroglycerin (Nitrostat) 0.4 mg PRN Q5MIN PRN SL CHEST PAIN Last administered on 04/30/21at 15:40; Start 04/30/21 at 15:30 Iohexol (Omnipaque 350 Mg/ml) 100 ml 1X ONCE IV Last administered on 04/30/21at 15:30; Start 04/30/21 at 15:30; Stop 04/30/21 at 15:31; Status DC Ondansetron HCl (Zofran) 4 mg PRN Q8HRS PRN IVP NAUSEA/VOMITING; Start 04/30/21 at 18:15; Stop 05/01/21 at 18:14 Morphine Sulfate (Morphine Sulfate) 4 mg PRN Q4HRS PRN IVP chest pain Last administered on 05/01/21at 09:24; Start 04/30/21 at 18:15 Sodium Chloride 1,000 ml @ 75 mls/hr 1X ONCE IV Last administered on 04/30/21at 18:15; Start 04/30/21 at 18:15; Stop 05/01/21 at 07:34; Status DC Morphine Sulfate (Morphine Sulfate) 4 mg 1X ONCE IVP Last administered on 04/30/21at 18:24; Start 04/30/21 at 18:45; Stop 04/30/21 at 18:46; Status DC Heparin Sodium/ Dextrose 250 ml @ 12 mls/hr CONT PRN IV PER PROTOCOL Last administered on 04/30/21at 20:21; Start 04/30/21 at 19:00 Heparin Sodium (Porcine) (Heparin Sodium) 2,500 unit PRN Q6HRS PRN IV FOR UFH LEVEL LESS THAN 0.2 Last administered on 05/01/21at 03:20; Start 04/30/21 at 19:00 Metoprolol Tartrate (Lopressor) 25 mg BID PO Last administered on 05/01/21at 09:12; Start 05/01/21 at 09:00 Metoprolol Tartrate (Lopressor) 25 mg 1X ONCE PO Last administered on 04/30/21 22:47; Start 04/30/21 at 21:15; Stop 04/30/21 at 21:18; Status DC Atorvastatin Calcium (Lipitor) 40 mg QHS PO Last administered on 11/12/21at 22:47; Start 04/30/21 at 22:00 Acetaminophen (Tylenol) 650 mg PRN Q6HRS PRN PO MILD PAIN / TEMP > 100.3'F Last administered on 05/01/21at 07:30; Start 05/01/21 at 06:45 Sodium Bicarbonate 50 meq/Sodium Chloride 1,050 ml @ 100 mls/hr 1X ONCE IV Last administered on 05/01/21at 11:50; Start 05/01/21 at 11:00; Stop 05/01/21 at 21:29 Levothyroxine Sodium (Synthroid) 250 mcg DAILYAC PO ; Start 05/01/21 at 13:00 Non-Formulary Medication (Norgestimate-Ethinyl Estradiol (Sprintec)) 1 tab DAILY PO ; Start 05/02/21 at 09:00; Status UNV Active Scripts Active Reported Sprintec (Norgestimate-Ethinyl Estradiol) 1 Each Tablet 1 Tab PO DAILY Levothyroxine Sodium 125 Mcg Tablet 250 Mcg PO DAILYAC Allergies Allergies: Coded Allergies: fish derived (Verified Allergy, Intermediate, 05/01/21) seafood ROS General: YES: Fatigue Cardiovascular: yes Chest Pain Neurological: Yes Other (Headache) Physical Exam General: No acute distress HEENT: Atraumatic Lungs: Clear to auscultation Heart: Regular rate Abdomen: Normal bowel sounds Vitals VITALS Vital Signs Date Time Temp Pulse Resp B/P (MAP) Pulse Ox O2 Delivery O2 Flow Rate FiO2 05/01/21 11:00 97.5 52 18 135/77 (96) 95 Room Air 97.5 Labs Labs Laboratory Tests Test 04/30/21 14:10 04/30/21 15:36 04/30/21 17:15 05/01/21 02:32 White Blood Count 7.2 x10^3/uL (4.0-11.0) 6.1 x10^3/uL (4.0-11.0) Red Blood Count 4.68 x10^6/uL (3.50-5.40) 4.11 x10^6/uL (3.50-5.40) Hemoglobin 13.5 g/dL (12.0-15.5) 11.8 g/dL (12.0-15.5) Hematocrit 40.9 % (36.0-47.0) 35.9 % (36.0-47.0) Mean Corpuscular Volume 87 fL (79-100) 87 fL (79-100) Mean Corpuscular Hemoglobin 29 pg (25-35) 29 pg (25-35) Mean Corpuscular Hemoglobin Concent 33 g/dL (31-37) 33 g/dL (31-37) Red Cell Distribution Width 15.1 % (11.5-14.5) 15.3 % (11.5-14.5) Platelet Count 239 x10^3/uL (140-400) 224 x10^3/uL (140-400) Neutrophils (%) (Auto) 69 % (31-73) Lymphocytes (%) (Auto) 23 % (24-48) Monocytes (%) (Auto) 7 % (0-9) Eosinophils (%) (Auto) 0 % (0-3) Basophils (%) (Auto) 1 % (0-3) Neutrophils # (Auto) 5.0 x10^3/uL (1.8-7.7) Lymphocytes # (Auto) 1.7 x10^3/uL (1.0-4.8) Monocytes # (Auto) 0.5 x10^3/uL (0.0-1.1) Eosinophils # (Auto) 0.0 x10^3/uL (0.0-0.7) Basophils # (Auto) 0.1 x10^3/uL (0.0-0.2) D-Dimer (Jesi) 0.31 ug/mlFEU (0.00-0.50) Sodium Level 140 mmol/L (136-145) 138 mmol/L (136-145) Potassium Level 3.8 mmol/L (3.5-5.1) 3.9 mmol/L (3.5-5.1) Chloride Level 107 mmol/L (98-107) 109 mmol/L (98-107) Carbon Dioxide Level 21 mmol/L (21-32) 23 mmol/L (21-32) Anion Gap 12 (6-14) 6 (6-14) Blood Urea Nitrogen 10 mg/dL (7-20) 10 mg/dL (7-20) Creatinine 0.7 mg/dL (0.6-1.0) 0.6 mg/dL (0.6-1.0) Estimated GFR (Cockcroft-Gault) 87.2 104.2 BUN/Creatinine Ratio 14 (6-20) Glucose Level 111 mg/dL (70-99) 120 mg/dL (70-99) Calcium Level 8.3 mg/dL (8.5-10.1) 7.6 mg/dL (8.5-10.1) Magnesium Level 2.0 mg/dL (1.8-2.4) Total Bilirubin 0.3 mg/dL (0.2-1.0) Aspartate Amino Transf (AST/SGOT) 12 U/L (15-37) Alanine Aminotransferase (ALT/SGPT) 19 U/L (14-59) Alkaline Phosphatase 71 U/L (46-116) Creatine Kinase 81 U/L (26-192) Troponin I High Sensitivity 74 ng/L (4-50) 5436 ng/L (4-50) 2769 ng/L (4-50) BU-Ttn-X-Type Natriuretic Peptide 253 pg/mL (0-124) Total Protein 7.2 g/dL (6.4-8.2) Albumin 3.5 g/dL (3.4-5.0) Albumin/Globulin Ratio 0.9 (1.0-1.7) Lipase 48 U/L (73-393) Serum Test, Qualitative Negative (NEG) Urine Collection Type Unknown Urine Color Yellow Urine Clarity Clear Urine pH 6.0 (<5.0-8.0) Urine Specific [place] 1.010 (1.000-1.030) Urine Protein Negative mg/dL (NEG-TRACE) Urine Glucose (UA) Negative mg/dL (NEG) Urine Ketones (Stick) 40 mg/dL (NEG) Urine Blood Large (NEG) Urine Nitrite Negative (NEG) Urine Bilirubin Negative (NEG) Urine Urobilinogen Dipstick 0.2 mg/dL (0.2 mg/dL) Urine Leukocyte Esterase Small (NEG) Urine RBC Tntc /HPF (0-2) Urine WBC 1-4 /HPF (0-4) Urine Squamous Epithelial Cells Few /LPF Urine Bacteria 0 /HPF (0-FEW) Urine Mucus Slight /LPF Heparin Anti-Xa Act, Unfractionated < 0.10 IU/mL (0.30-0.70) Triglycerides Level 114 mg/dL (0-150) Cholesterol Level 157 mg/dL (0-200) LDL Cholesterol, Calculated 82 mg/dL (0-100) VLDL Cholesterol, Calculated 23 mg/dL (0-40) Non-HDL Cholesterol Calculated 105 mg/dL (0-129) HDL Cholesterol 52 mg/dL (40-60) Cholesterol/HDL Ratio 3.0 Test 05/01/21 08:35 Heparin Anti-Xa Act, Unfractionated 0.35 IU/mL (0.30-0.70) Laboratory Tests Test 04/30/21 14:10 04/30/21 15:36 04/30/21 17:15 05/01/21 02:32 White Blood Count 7.2 x10^3/uL (4.0-11.0) 6.1 x10^3/uL (4.0-11.0) Red Blood Count 4.68 x10^6/uL (3.50-5.40) 4.11 x10^6/uL (3.50-5.40) Hemoglobin 13.5 g/dL (12.0-15.5) 11.8 g/dL (12.0-15.5) Hematocrit 40.9 % (36.0-47.0) 35.9 % (36.0-47.0) Mean Corpuscular Volume 87 fL (79-100) 87 fL (79-100) Mean Corpuscular Hemoglobin 29 pg (25-35) 29 pg (25-35) Mean Corpuscular Hemoglobin Concent 33 g/dL (31-37) 33 g/dL (31-37) Red Cell Distribution Width 15.1 % (11.5-14.5) 15.3 % (11.5-14.5) Platelet Count 239 x10^3/uL (140-400) 224 x10^3/uL (140-400) Neutrophils (%) (Auto) 69 % (31-73) Lymphocytes (%) (Auto) 23 % (24-48) Monocytes (%) (Auto) 7 % (0-9) Eosinophils (%) (Auto) 0 % (0-3) Basophils (%) (Auto) 1 % (0-3) Neutrophils # (Auto) 5.0 x10^3/uL (1.8-7.7) Lymphocytes # (Auto) 1.7 x10^3/uL (1.0-4.8) Monocytes # (Auto) 0.5 x10^3/uL (0.0-1.1) Eosinophils # (Auto) 0.0 x10^3/uL (0.0-0.7) Basophils # (Auto) 0.1 x10^3/uL (0.0-0.2) D-Dimer (Jesi) 0.31 ug/mlFEU (0.00-0.50) Sodium Level 140 mmol/L (136-145) 138 mmol/L (136-145) Potassium Level 3.8 mmol/L (3.5-5.1) 3.9 mmol/L (3.5-5.1) Chloride Level 107 mmol/L (98-107) 109 mmol/L (98-107) Carbon Dioxide Level 21 mmol/L (21-32) 23 mmol/L (21-32) Anion Gap 12 (6-14) 6 (6-14) Blood Urea Nitrogen 10 mg/dL (7-20) 10 mg/dL (7-20) Creatinine 0.7 mg/dL (0.6-1.0) 0.6 mg/dL (0.6-1.0) Estimated GFR (Cockcroft-Gault) 87.2 104.2 BUN/Creatinine Ratio 14 (6-20) Glucose Level 111 mg/dL (70-99) 120 mg/dL (70-99) Calcium Level 8.3 mg/dL (8.5-10.1) 7.6 mg/dL (8.5-10.1) Magnesium Level 2.0 mg/dL (1.8-2.4) Total Bilirubin 0.3 mg/dL (0.2-1.0) Aspartate Amino Transf (AST/SGOT) 12 U/L (15-37) Alanine Aminotransferase (ALT/SGPT) 19 U/L (14-59) Alkaline Phosphatase 71 U/L (46-116) Creatine Kinase 81 U/L (26-192) Troponin I High Sensitivity 74 ng/L (4-50) 5436 ng/L (4-50) 2769 ng/L (4-50) KL-Evd-E-Type Natriuretic Peptide 253 pg/mL (0-124) Total Protein 7.2 g/dL (6.4-8.2) Albumin 3.5 g/dL (3.4-5.0) Albumin/Globulin Ratio 0.9 (1.0-1.7) Lipase 48 U/L (73-393) Serum Test, Qualitative Negative (NEG) Urine Collection Type Unknown Urine Color Yellow Urine Clarity Clear Urine pH 6.0 (<5.0-8.0) Urine Specific [place] 1.010 (1.000-1.030) Urine Protein Negative mg/dL (NEG-TRACE) Urine Glucose (UA) Negative mg/dL (NEG) Urine Ketones (Stick) 40 mg/dL (NEG) Urine Blood Large (NEG) Urine Nitrite Negative (NEG) Urine Bilirubin Negative (NEG) Urine Urobilinogen Dipstick 0.2 mg/dL (0.2 mg/dL) Urine Leukocyte Esterase Small (NEG) Urine RBC Tntc /HPF (0-2) Urine WBC 1-4 /HPF (0-4) Urine Squamous Epithelial Cells Few /LPF Urine Bacteria 0 /HPF (0-FEW) Urine Mucus Slight /LPF Heparin Anti-Xa Act, Unfractionated < 0.10 IU/mL (0.30-0.70) Triglycerides Level 114 mg/dL (0-150) Cholesterol Level 157 mg/dL (0-200) LDL Cholesterol, Calculated 82 mg/dL (0-100) VLDL Cholesterol, Calculated 23 mg/dL (0-40) Non-HDL Cholesterol Calculated 105 mg/dL (0-129) HDL Cholesterol 52 mg/dL (40-60) Cholesterol/HDL Ratio 3.0 Test 05/01/21 08:35 Heparin Anti-Xa Act, Unfractionated 0.35 IU/mL (0.30-0.70) Images Images Checks x-ray and CT scan as above. Assessment/Plan Assessment/Plan 1. Episodes of chest pain and elevated troponin as noted above. Probable non- ST elevated myocardial infarction. Patient is chest pain-free. She reports an allergy to seafood. She did receive contrast for a CT scan yesterday without complications. At this time we will continue on heparin and aspirin. Risks and benefits of a cardiac catheterization and possible intervention were discussed with the patient and her family. They wish to proceed. We will schedule heart catheterization for tomorrow morning and give oral steroids today. 2. Hypertension. Patient's blood pressure under control. We will continue to monitor. 3. Migraine headaches. 4. Hypothyroidism. LISA MELENDEZ MD May 01, 2021 13:52
[2021-05-01 14:44] VITALS: BP 107/53
[2021-05-01] MEDS ORDERED: NORGESTIMATE ETHINYL ESTRADIOL PO SCH (15:00)
[2021-05-01] MEDS: [UNRECOGNIZED DRUG - OTHER] PO SCH (15:03)
[2021-05-01 19:19] VITALS: BP 174/90
[2021-05-01] MEDS: ATORVASTATIN CALCIUM 40 MG TABLET. PO SCH (21:15)
[2021-05-01 23:16] VITALS: BP 121/57
[2021-05-02] VITALS (12 sets, daily range): BP systolic 109–154; BP diastolic 45–91
[2021-05-02] MEDS: HEPARIN 25,000UTS/250ML PREMIX 250 ML IV PRN (04:29)
[2021-05-02] MEDS: LEVOTHYROXINE 125 MCG TABLET PO SCH (06:13)
[2021-05-02] MEDS: [UNRECOGNIZED DRUG - OTHER] PO SCH (08:30)
[2021-05-02] MEDS ORDERED: HEPARIN for ARTERIAL LINE 1,500 ML ONE (09:48)
[2021-05-02] MEDS ORDERED: IODIXANOL 320 MG/ML 100 ML VIAL. ONE (09:48)
[2021-05-02] MEDS ORDERED: LIDOCAINE 1% Multi-Dose 20 ML VIAL. ONE ×2 (09:48→09:52)
[2021-05-02] MEDS ORDERED: MIDAZOLAM HCL/PF 2 MG/2 ML VIAL. ONE ×2 (09:51→10:32)
[2021-05-02] MEDS ORDERED: fentaNYL PF VIAL 100 MCG/2 ML VIAL ONE (09:51)
[2021-05-02] MEDS ORDERED: fentaNYL PF VIAL 100 MCG/2 ML VIAL IV ONE (10:00)
[2021-05-02] MEDS ORDERED: MIDAZOLAM HCL/PF 2 MG/2 ML VIAL. IV ONE (10:00)
[2021-05-02] MEDS ORDERED: LIDOCAINE 1% Multi-Dose 20 ML VIAL. INJ ONE (10:00)
[2021-05-02] MEDS ORDERED: IODIXANOL 320 MG/ML 100 ML VIAL. IART ONE (10:00)
--- NOTE | 2021-05-02 10:15 | PDOC ---
MODERATE SEDATION ASSESSMENT RISKS/ALTERNATIVES Risks/Alternatives Risks and alternatives of this type of sedation and procedure discussed with: RISK/ALTERNATIVES: Patient H & P ON CHART H & P H & P on chart and reviewed for co-morbid conditions and appropriate labs. H&P ON CHART: Yes STATUS PREG STATUS ASSESSED: Yes MEDS/ALLERGIES REVIEWED Meds/Allergies Reviewed Medications and Allergies including time and route of recently administered narcotics and sedatives. MEDS/ALLERGIES REVIEWED: Yes ASA RATING ASA RATING: II AIRWAY ASSESSMENT Airway Assessment Airway patency, oral function limitations, presence of caps, crowns, dentures, partials, and ability to extend neck assessed. AIRWAY ASSESSMENT: Yes MALLAMPATI SCORE MALLAMPATI SCORE: II PRE-SEDATION ASSESSMENT PRE-SEDATION ASSESSMENT: Yes LISA MELENDEZ MD May 02, 2021 10:15
[2021-05-02] MEDS ORDERED: 0.9 % SODIUM CHLORIDE 10 ML DISP.SYRIN. IV PRN (11:45)
[2021-05-02] MEDS ORDERED: LISINOPRIL 5 MG TABLET. PO SCH (11:45)
[2021-05-02] MEDS ORDERED: IV NORMAL SALINE 1000ML BAG 1,000 ML IV SCH (11:45)
[2021-05-02] MEDS: METOPROLOL TART IMMED RELEASE 25 MG TABLET. PO SCH (12:16)
[2021-05-02] MEDS ORDERED: METO25TA4 PO (12:37)
[2021-05-02] MEDS ORDERED: ATOR40TA59 PO (12:37)
[2021-05-02] MEDS ORDERED: ASPI325T11 PO (12:37)
--- NOTE | 2021-05-02 12:40 | PDOC3 ---
Discharge Summary Visit Information Date of Admission: Apr 30, 2021 Date of Discharge: May 02, 2021 Final Diagnosis NSTEMI, new systolic CHF obese, BMI 33 htn graves disease, hypothyroidism migrane headache, better on hormone replacement Problems Medical Problems: (1) Acute coronary syndrome Status: Acute (2) Cardiomegaly Status: Acute (3) Chest pain Status: Acute (4) Elevated troponin Status: Acute Brief Hospital Course Allergies Allergies Coded Allergies Type Severity Reaction Last Updated Verified fish derived Allergy Intermediate 05/01/21 Yes Vital Signs Vital Signs Date Time Temp Pulse Resp B/P (MAP) Pulse Ox O2 Delivery O2 Flow Rate FiO2 05/02/21 12:16 68 145/91 05/02/21 10:57 17 99 Nasal Cannula 2.0 05/02/21 06:30 98.4 98.4 Lab Results Laboratory Tests Test 04/30/21 14:10 04/30/21 15:36 04/30/21 17:15 05/01/21 02:32 White Blood Count 7.2 x10^3/uL (4.0-11.0) 6.1 x10^3/uL (4.0-11.0) Red Blood Count 4.68 x10^6/uL (3.50-5.40) 4.11 x10^6/uL (3.50-5.40) Hemoglobin 13.5 g/dL (12.0-15.5) 11.8 g/dL (12.0-15.5) Hematocrit 40.9 % (36.0-47.0) 35.9 % (36.0-47.0) Mean Corpuscular Volume 87 fL (79-100) 87 fL (79-100) Mean Corpuscular Hemoglobin 29 pg (25-35) 29 pg (25-35) Mean Corpuscular Hemoglobin Concent 33 g/dL (31-37) 33 g/dL (31-37) Red Cell Distribution Width 15.1 % (11.5-14.5) 15.3 % (11.5-14.5) Platelet Count 239 x10^3/uL (140-400) 224 x10^3/uL (140-400) Neutrophils (%) (Auto) 69 % (31-73) Lymphocytes (%) (Auto) 23 % (24-48) Monocytes (%) (Auto) 7 % (0-9) Eosinophils (%) (Auto) 0 % (0-3) Basophils (%) (Auto) 1 % (0-3) Neutrophils # (Auto) 5.0 x10^3/uL (1.8-7.7) Lymphocytes # (Auto) 1.7 x10^3/uL (1.0-4.8) Monocytes # (Auto) 0.5 x10^3/uL (0.0-1.1) Eosinophils # (Auto) 0.0 x10^3/uL (0.0-0.7) Basophils # (Auto) 0.1 x10^3/uL (0.0-0.2) D-Dimer (Jesi) 0.31 ug/mlFEU (0.00-0.50) Sodium Level 140 mmol/L (136-145) 138 mmol/L (136-145) Potassium Level 3.8 mmol/L (3.5-5.1) 3.9 mmol/L (3.5-5.1) Chloride Level 107 mmol/L (98-107) 109 mmol/L (98-107) Carbon Dioxide Level 21 mmol/L (21-32) 23 mmol/L (21-32) Anion Gap 12 (6-14) 6 (6-14) Blood Urea Nitrogen 10 mg/dL (7-20) 10 mg/dL (7-20) Creatinine 0.7 mg/dL (0.6-1.0) 0.6 mg/dL (0.6-1.0) Estimated GFR (Cockcroft-Gault) 87.2 104.2 BUN/Creatinine Ratio 14 (6-20) Glucose Level 111 mg/dL (70-99) 120 mg/dL (70-99) Calcium Level 8.3 mg/dL (8.5-10.1) 7.6 mg/dL (8.5-10.1) Magnesium Level 2.0 mg/dL (1.8-2.4) Total Bilirubin 0.3 mg/dL (0.2-1.0) Aspartate Amino Transf (AST/SGOT) 12 U/L (15-37) Alanine Aminotransferase (ALT/SGPT) 19 U/L (14-59) Alkaline Phosphatase 71 U/L (46-116) Creatine Kinase 81 U/L (26-192) Troponin I High Sensitivity 74 ng/L (4-50) 5436 ng/L (4-50) 2769 ng/L (4-50) WD-Sug-F-Type Natriuretic Peptide 253 pg/mL (0-124) Total Protein 7.2 g/dL (6.4-8.2) Albumin 3.5 g/dL (3.4-5.0) Albumin/Globulin Ratio 0.9 (1.0-1.7) Lipase 48 U/L (73-393) Serum Test, Qualitative Negative (NEG) Urine Collection Type Unknown Urine Color Yellow Urine Clarity Clear Urine pH 6.0 (<5.0-8.0) Urine Specific Reubens 1.010 (1.000-1.030) Urine Protein Negative mg/dL (NEG-TRACE) Urine Glucose (UA) Negative mg/dL (NEG) Urine Ketones (Stick) 40 mg/dL (NEG) Urine Blood Large (NEG) Urine Nitrite Negative (NEG) Urine Bilirubin Negative (NEG) Urine Urobilinogen Dipstick 0.2 mg/dL (0.2 mg/dL) Urine Leukocyte Esterase Small (NEG) Urine RBC Tntc /HPF (0-2) Urine WBC 1-4 /HPF (0-4) Urine Squamous Epithelial Cells Few /LPF Urine Bacteria 0 /HPF (0-FEW) Urine Mucus Slight /LPF Heparin Anti-Xa Act, Unfractionated < 0.10 IU/mL (0.30-0.70) Triglycerides Level 114 mg/dL (0-150) Cholesterol Level 157 mg/dL (0-200) LDL Cholesterol, Calculated 82 mg/dL (0-100) VLDL Cholesterol, Calculated 23 mg/dL (0-40) Non-HDL Cholesterol Calculated 105 mg/dL (0-129) HDL Cholesterol 52 mg/dL (40-60) Cholesterol/HDL Ratio 3.0 Test 05/01/21 08:35 05/01/21 14:30 05/01/21 21:40 05/02/21 04:30 Heparin Anti-Xa Act, Unfractionated 0.35 IU/mL (0.30-0.70) 0.26 IU/mL (0.30-0.70) 0.21 IU/mL (0.30-0.70) 0.53 IU/mL (0.30-0.70) Laboratory Tests Test 05/01/21 14:30 05/01/21 21:40 05/02/21 04:30 Heparin Anti-Xa Act, Unfractionated 0.26 IU/mL (0.30-0.70) 0.21 IU/mL (0.30-0.70) 0.53 IU/mL (0.30-0.70) Brief Hospital Course Ms. Polo is a 55 old female, admit for chest pain, top 75, then 6000 range NSTEMI admit, heparin gtt, statin, b-dominguez, aspirin, CV consult cardiac cath on 05/02, only very small vessel disease, no stent, med managment Discharge Information Condition at Discharge: Improved Follow Up: Weeks Disposition/Orders: D/C to Home Scheduled Levothyroxine Sodium (Levothyroxine Sodium) 125 Mcg Tablet, 250 MCG PO DAILYAC for THYROID SUPPLEMENT, #30 Ref 0 (Reported) Entered as Reported by: JOSIAH HALE RN on 04/30/212117 Last Action: Continued on 05/01/21 124 by ROMEO WEBSTER Norgestimate-Ethinyl Estradiol (Sprintec) 1 Each Tablet, 1 TAB PO DAILY for , # 28 Ref 11 (Reported) Entered as Reported by: JOSIAH HALE RN on 04/30/212117 Last Action: Converted on 05/01/211239 by ROMEO WEBSTER Patient Instructions Patient Instructions DC face to face 34 minutes total time today Justicifation of Admission Dx: Justifications for Admission: Justification of Admission Dx: Yes AL: Acute NSTEMI ROMEO WEBSTER MD May 02, 2021 12:40
--- NOTE | 2021-05-02 13:14 | CARD ---
MR#: [id number] Date of Study: 05/02/2021 Ordering Physician: LISA GAMBOA, Referring Physician: LISA GAMBOA, Tech: Ruba Boateng RT(R) APPROVED REPORT Procedures Left heart catheterization Selective coronary angiogram Left ventriculogram The patient is a 55-year-old female who was admitted for episodes of chest discomfort. Her high-sens itivity troponin increased to greater than 5000. She was initially treated with heparin and remained pain-free after admission. In this setting a cardiac catheterization was recommended. Risks and b enefits were discussed with the patient. She gave informed consent to proceed. After informed consent was obtained the patient was brought to the heart catheterization lab. The ar ea the right femoral artery was prepared in the usual manner with Betadine, sterile draping and local anesthetic. An 18-gauge needle was used to enter the right femoral artery, a wire placed and a 6 Fr ench sheath placed over the wire. A 6 [place] JL4 diagnostic catheter was used to engage the left cor onary system and sequential injections of various views were obtained. A 6 [place] Redd diagnosti c catheter was used to engage to the right coronary artery system and sequential injections in variou s views were obtained. A pigtail catheter was advanced to the left ventricle. Pressures were obtain ed. A 30 degree CALLAHAN left ventriculogram was performed. Pullback pressures were measured. The silas ter was removed from the patient. All catheter exchanges were over a J-wire. The sheath was removed and hand pressure was used to seal the site. There were no immediate complications. Hemodynamics. LV pressure of 142/6/20 with an EDP of 20. Aortic root pressure of 140/76. Coronaries. Left main. The left main had no lesions. Left anterior descending. The LAD was a large vessel that proceeded around the apex. It had no lesi ons. Left circumflex. The left circumflex was a moderate size dominant vessel. It had no lesions. Right coronary artery. The right coronary was a small nondominant vessel with no lesions. Left ventricle. The left ventricle was of normal size. On injection the apex of the left ventricle showed hypokinesi s. The rest of the ventricle was normal. Ejection fraction was estimated at 45%. <Conclusion> No significant angiographic evidence of coronary artery disease. Mildly decreased LV systolic function with apical hypokinesis. Fluoroscopy time of 2.2 minutes Dose 39 Gycm2 Contrast 91 cc of VISI Sedation time 54 minutes Estimated blood loss 15 cc All protective measures and perez were used during the procedure. The patient was independently monitored throughout the procedure. Signed by : Lisa Gamboa MD Electronically Approved : 05/02/2021 13:13:56
[2021-05-02] MEDS ORDERED: LISI5TAB15 PO (17:00)
--- NOTE | 2021-05-02 18:00 | NUR ---
Discharge Note: REZA GRIMM [address] [place] [address] Discharge instructions and discharge home medications reviewed with Patient and a copy given. All questions have been answered and understanding verbalized. The following instructions and handouts were given: discharge instructions, med list/education, post cath education, CP education Discontinued lines and drains: Peripheral IV intact. Patient discharged to Home or Self Care with Spouse via Wheelchair at 1800. Addendum: 05/02/21 at 1942 by BEBA PONO RN R groin site CDI, warm, soft, no bleeding at time of discharge.
--- NOTE | 2021-05-04 15:37 | EKG ---
[facility] [address] [place] [address] Test Date: 2021-05-04 Test Time: 15:33:50 Pat Name: REZA GRIMM Department: Room: [facility] Gender: F [employer] Supervisor: : 1965 Requested By: GIOVANI BARDALES Order Number: [id number] Reading MD: Bravo Gonzalez Measurements Intervals [place] Rate: 65 P: 46 [place]: 166 QRS: -2 QRSD: 94 T: 38 QT: 430 QTc: 453 Interpretive Statements SINUS RHYTHM LEFTWARD AXIS Electronically Signed On 05-09-2021 9:36:35 [employer]IEF [employer] OFFICER by Bravo Gonzalez
== END 2021-05-02 18:00 | disposition home or self-care (01) | DRG 281 ==
LOC: ER 13:57 → 6 SOUTH 15:20 → OBSVTOIN 05-01 21:37
PROVIDERS: ADMIT Internal Medicine; ATTEND Internal Medicine
PROC: 5A0935A Assistance with Respiratory Ventilation, Less than 24 Consecutive Hours, High Flow/Velocity Cannula (ICD-10-PCS; principal; 2021-05-02)
PROC: 4A023N7 Measurement of Cardiac Sampling and Pressure, Left Heart, Percutaneous Approach (ICD-10-PCS; 2021-05-02)
PROC: B215YZZ Fluoroscopy of Left Heart using Other Contrast (ICD-10-PCS; 2021-05-02)
PROC: B211YZZ Fluoroscopy of Multiple Coronary Arteries using Other Contrast (ICD-10-PCS; 2021-05-02)
DX: I21.4 Non-ST elevation (NSTEMI) myocardial infarction (principal); I50.20 Unspecified systolic (congestive) heart failure; E03.9 Hypothyroidism, unspecified; E05.00 Thyrotoxicosis with diffuse goiter without thyrotoxic crisis or storm; E66.9 Obesity, unspecified; F41.9 Anxiety disorder, unspecified; G43.909 Migraine, unspecified, not intractable, without status migrainosus; I11.0 Hypertensive heart disease with heart failure; I25.2 Old myocardial infarction; J43.9 Emphysema, unspecified; K76.89 Other specified diseases of liver; Z68.33 Body mass index [BMI] 33.0-33.9, adult; Z79.890 Hormone replacement therapy; Z82.49 Family history of ischemic heart disease and other diseases of the circulatory system; Z82.5 Family history of asthma and other chronic lower respiratory diseases; Z91.013 Allergy to seafood; Z20.822 Contact with and (suspected) exposure to COVID-19
CPT/HCPCS: 36415; 71045; 71275; 80048; 80053; 80061; 81001; 82550; 83690; 83735; 83880; 84484; 84703; 85025; 85027; 85379; 85520; 87086; 93005; 93458; 96361; 96374; 96375; 99152; 99153; C1894; G0378; G0379; J1644; J1885; J2060; J2250; J2270; J3010; J3490; J7030; J7512; Q9967; 99285-25

== ENCOUNTER 2021-05-04 15:26 | Emergency (ER) | payer OTHER ==
[~2021-05-04] VITALS: Ht 172.7 cm; Wt 100.0 kg
[~2021-05-04 15:26] MED LIST: ASPI325T11 PO; ATOR40TA59 PO; LEVO125T5 PO; LISI5TAB15 PO; METO25TA4 PO; NORG1TAB6 PO
--- NOTE | 2021-05-04 15:36 | PHYS DOC ---
Past Medical History Additional Past Medical Histor: kerry Past Surgical History: Tonsillectomy Smoking Status: Former Smoker Alcohol Use: None General Adult EDM: Chief Complaint: CHEST PAIN HPI: HPI: Patient is a 55 year old report of continued midsternal chest pain, which radiates to her back. I saw this patient this past Monday for chest pain in this emergency department. She was admitted to the hospital with elevated troponin and concern for possible ACS. At that time, she had a angiogram of her chest, negative for dissection or PE. Her troponin had initially been in the 70s but elevated to over 5000. Cardiology was consulted. They saw her in the hospital. She underwent cardiac catheterization, and she was found to have clean coronary arteries. She had some apical hypokinesis and an ejection fraction of 45%. She was discharged home on Monday. She has been compliant with antihypertensives and aspirin. She is still having the pain, and she rep orts that though the pain would intermittently resolve while she was receiving medications in the ER and in the hospital, the pain would return. She admits the pain is not nearly as severe as it was when she initially presented. She was wondering why she continued to have pain if her coronary arteries were clear. She denies any dyspnea. She denies dizziness, diaphoresis. She denies nausea vomiting. She has abdominal pain. She denies lower extremity pain or swelling. Denies syncope. Review of Systems: Review of Systems: Constitutional: Denies fever or chills. [] Eyes: Denies change in visual acuity. [] HENT: Denies nasal congestion or sore throat. [] Respiratory: Denies cough or shortness of breath. [] Cardiovascular: Orts chest pain. GI: Denies abdominal pain, nausea, vomiting Musculoskeletal: Ports midthoracic back pain. Denies joint pain or swelling. Integument: Denies rash. [] Neurologic: Denies headache, focal weakness or sensory changes. Denies syncope, dizziness Psychiatric: Does have some mild anxiety as it pertains current to current and recent illness. [] Heart Score: C/O Chest Pain: Yes HEART Score for Chest Pain: HEART Score for Chest Pain Response (Comments) Value History Slighlty/Non-Suspicious 0 ECG Nonspecific Repolarizatio 1 Age >45 - < 65 1 Risk Factors 1 or 2 Risk Factors 1 Troponin >1-<3x Normal Limit 1 Total 4 Risk Factors: Risk Factors: DM, Current or recent (<one month) smoker, HTN, HLP, family history of CAD, obesity. Risk Scores: Score 0 - 3: 2.5% MACE over next 6 weeks - Discharge Home Score 4 - 6: 20.3% MACE over next 6 weeks - Admit for Clinical Observation Score 7 - 10: 72.7% MACE over next 6 weeks - Early Invasive Strategies Allergies: Allergies: Allergies Coded Allergies Type Severity Reaction Last Updated Verified fish derived Allergy Intermediate 05/01/21 Yes Physical Exam: PE: Constitutional: Well developed, well nourished, no acute distress, non-toxic appearance. [] HENT: Normocephalic, atraumatic, mucous membranes are moist. Eyes: Sclera clear, anicteric Neck: Normal range of motion, no tenderness, supple, no stridor. Trachea is midline. No JVD. Cardiovascular:Heart rate regular rhythm, no murmur, +2 radial and posterior tibial pulses bilaterally. Warm and well perfused. Lungs & Thorax: Bilateral breath sounds clear to auscultation [] Abdomen: Abdomen is soft, nondistended, nontender. Skin: Warm, dry, no erythema, no rash. [] Back: No tenderness, no CVA tenderness. No deformity of her spine, no step- offs. Extremities: No tenderness, no cyanosis, no clubbing, ROM intact, no edema. No calf tenderness. Neurologic: Alert and oriented X 3, normal motor function, normal sensory function, no focal deficits noted. [] Psychologic: Affect normal, judgement normal, mood normal. She is pleasant and cooperative. [] EKG: EKG: EKG is interpreted at 1536 Rhythms is sinus Rate is 65 bpm Wiseman is left No STEMI Radiology/Procedures: Radiology/Procedures: IMAGING REPORT Signed PATIENT: REZA GRIMM JACCOUNT: [id number] : 1965 LOCATION: ER AGE: 55 SEX: F EXAM STATUS: PRE ER ORD. PHYSICIAN: GIOVANI BARDALES DO REASON: chest pain PROCEDURE: PORTABLE CHEST 1V EXAM: Chest, single view. HISTORY: Chest pain. COMPARISON: 04/30/2021. FINDINGS: A frontal view of the chest is obtained. There is suspected bilateral infrahilar linear atelectasis. There is no consolidation, pleural effusion or pneumothorax. There is a stable prominent cardiac silhouette. IMPRESSION: Bilateral infrahilar linear atelectasis. Electronically signed by: Lana Roy MD (05/04/2021 4:06 PM) [id number] DICTATED and SIGNED BY: LANA ROY MD DATE: 05/04/21 [id number] 0 Course & Med Decision Making: Course & Med Decision Making Pertinent Labs and Imaging studies reviewed. (See chart for details) IV Toradol was ordered for pain here. I reviewed her records, including her cardiac catheterization report. Her troponin is trending down to the 170s currently. No acute ischemia is noted on EKG. Her pain is admittedly improved from when she was admitted a few days ago. I consulted with Dr. Davis of cardiology, who reports that she never had a definitive diagnosis. The thought was that she might of had some atypical pericarditis or myocarditis. He recommends trying a course of oral colchicine. No current indication for repeat admission at this time. No indication for nitroglycerin administration. The patient's blood pressure is stable here. Systolic in the 120s. I told her to continue taking her prescribed medications. She is amenable to taking oral colchicine. She has an appointment on next Monday with her primary care physician. She is scheduled to see cardiology in May. I explained that if she feels her symptoms are worsening or persisting, she should contact the cardiology clinic and make a sooner follow-up appointment. She is comfortable with the plan for discharge. Strict return precautions are given. Grayson Disclaimer: Grayson Disclaimer: This electronic medical record was generated, in whole or in part, using a voice recognition dictation system. Departure Departure Impression: Primary Impression: Chest pain Additional Impression: History of cardiac catheterization Disposition: HOME / SELF CARE / HOMELESS Condition: STABLE Referrals: NO PCP (PCP) Patient Instructions: Chest Pain (Nonspecific) Additional Instructions: Use the medication as directed. Return to the ER immediately for more severe pain, shortness of breath, coughing up blood, fever 100.4 or higher, uncontrolled vomiting, severe abdominal pain, dehydration or any other concerns. Please contact your vice president payer for follow-up. Keep your appointment with your primary care physician on Jaclyn, as scheduled. Scripts Colchicine (Colchicine) 0.6 Mg Tablet 1 TAB PO BID for chest pain, #20 TAB 0 Refills Prov: GIOVANI BARDALES DO 05/04/21 GIOVANI BARDALES DO May 04, 2021 15:36
[2021-05-04 15:56] LABS: BILIRUBIN,URINE NEGATIVE (NEG); CLARITY,URINE CLEAR; COLOR,URINE YELLOW; NITRITE,URINE NEGATIVE (NEG); PH,URINE 6.5 (<5.0-8.0); PROTEIN,URINE NEGATIVE (NEG-TRACE)
[2021-05-04 16:07] LABS: BASO % 1 % (0-3); EOS # 0.1 x10^3/uL (0.0-0.7); EOS % 1 % (0-3); HEMOGLOBIN 12.6 g/dL (12.0-15.5); LYMPH % 30 % (24-48); MEAN CORPUSCULAR HEMOGLOBIN 29 pg (25-35); MEAN CORPUSCULAR HGB CONC 33 g/dL (31-37); MEAN CORPUSCULAR VOLUME 88 fL (79-100); MONO # 0.5 x10^3/uL (0.0-1.1); MONO % 7 % (0-9); NEUT # 4.1 x10^3/uL (1.8-7.7); NEUT % 61 % (31-73); PLATELET COUNT 231 x10^3/uL (140-400); RED BLOOD COUNT 4.34 x10^6/uL (3.50-5.40); RED CELL DISTRIBUTION WIDTH 14.7 % (11.5-14.5); WHITE BLOOD COUNT 6.7 x10^3/uL (4.0-11.0)
--- NOTE | 2021-05-04 16:08 | RAD ---
EXAM: Chest, single view. HISTORY: Chest pain. COMPARISON: 04/30/2021. FINDINGS: A frontal view of the chest is obtained. There is suspected bilateral infrahilar linear ate lectasis. There is no consolidation, pleural effusion or pneumothorax. There is a stable prominent ca rdiac silhouette. IMPRESSION: Bilateral infrahilar linear atelectasis. Electronically signed by: Lana Horner MD (05/04/2021 4:06 PM) [id number]
[2021-05-04 16:13] LABS: BACTERIA,URINE FEW /HPF (0-FEW); RBC,URINE 0 /HPF (0-2)
[2021-05-04 16:14] LABS: CALCIUM 8.6 mg/dL (8.5-10.1); CREATININE 0.7 mg/dL (0.6-1.0); GFR 87.2; POTASSIUM 3.8 mmol/L (3.5-5.1)
[2021-05-04] MEDS ORDERED: KETOROLAC 15 MG/ML VIAL. ONE (16:14)
[2021-05-04 16:20] LABS: ALBUMIN 3.4 g/dL (3.4-5.0); ALBUMIN/GLOBULIN RATIO 1.1 (1.0-1.7); TOTAL BILIRUBIN 0.3 mg/dL (0.2-1.0); TOTAL PROTEIN 6.6 g/dL (6.4-8.2)
[2021-05-04] MEDS ORDERED: KETOROLAC 15 MG/ML VIAL. IVP ONE (16:30)
[2021-05-04 17:19] VITALS: BP 127/67
[2021-05-04] MEDS ORDERED: COLC0.6T45 PO (17:30)
== END 2021-05-04 17:48 | disposition home or self-care (01) ==
LOC: ER 15:26
DX: R07.2 Precordial pain (principal); Z87.891 Personal history of nicotine dependence; Z91.013 Allergy to seafood
CPT/HCPCS: 36415; 71045; 80053; 81001; 83690; 83735; 83880; 84484; 85025; 87086; 93005; 96374; 99285; J1885